=== PATIENT | male | born 1990 | race Caucasian/White ===

== ENCOUNTER 2019-01-29 08:55 | Outpatient (CLI) | payer OTHER, SELFPAY ==
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
== END 2019-01-29 09:15 ==
PROVIDERS: PCP Nurse Practitioner Gerontology; Visit Provider Nurse Practitioner Gerontology
DX: M54.5 Low back pain (principal); X50.0XXA Overexertion from strenuous movement or load, initial encounter; M25.531 Pain in right wrist
CPT/HCPCS: 72110; 73110